=== PATIENT | male | born 1950 | race Caucasian/White ===

== ENCOUNTER → 2019-04-25 | Outpatient (CLI) | payer BC ==
[~2019-04-25] MED LIST: ASPIRIN E.C. 8181 MG PO; CALCIUM1 CAP PO; CARDENE 20MG CA20 M1 PO; CITRACAL ECONO200 MG PO; DIGESTIVE ENZYM1 TAB PO; ECHINACEA PO; FE-2020 MG PO; IMODIUM 2MG CAPS2 MG PO; JOINT PO; MEN'S VITAMIN; SYNTHROID 0.0.025 MG PO; SYNTHROID0.075 MG/T PO; VITAMIN B COMPL1 T16 PO; VITAMIN B COMPL1 TA1 PO; VITAMIN B12 PO; VITAMIN C500 MG PO; VITAMIN D1000 IU PO; VITAMIN D31000 IU PO; ZOFRAN 4MG T4 MG/TAB PO; [UNRECOGNIZED DRUG - OTHER] PO; [UNRECOGNIZED DRUG - OTHER] PO; [UNRECOGNIZED DRUG - OTHER] PO; [UNRECOGNIZED DRUG - OTHER] PO; [UNRECOGNIZED DRUG - OTHER] PO; [UNRECOGNIZED DRUG - OTHER] PO
== END ==
LOC: COL.LAB 12:32
DX: Z01.89 Encounter for other specified special examinations (principal)

== ENCOUNTER 2019-11-10 05:53 | Inpatient (IN) | payer BC, MEDICARE ==
[~2019-11-10] VITALS: Ht 167.6 cm; Wt 77.7 kg
[2019-11-10 06:40] LABS: BASO % 0.2 % (0.0-2.0); GRAN # 8.5 (1.4-6.5); GRAN % 84.5 % (42.2-75.2); HEMOGLOBIN 11.8 g/dl (13.5-18.0); LYMPH # 0.6 (1.2-3.4); LYMPH % 5.9 % (20.0-51.0); MEAN CELL VOLUME 79 fl (80.0-100.0); MEAN CORPUSCULAR HEMOGLOBIN 27 pg (27.0-31.0); MEAN CORPUSCULAR HGB CONC 34 g/dl (33.0-37.0); MEAN PLATELET VOLUME 12.2 fl (7.4-10.4); MONO # 0.9 (0.1-0.6); MONO % 9.1 % (1.7-9.3); PLATELET COUNT 98 K/mm3 (130-400); RED BLOOD COUNT 4.45 M/mm3 (4.20-5.60); REDCELL DISTRIBUTION WIDTH-CV 16.7 % (11.5-14.5)
[2019-11-10 06:42] LABS: HEMATOCRIT 35.1 % (42.0-52.0)
[2019-11-10 06:51] LABS: BILIRUBIN,TOTAL 0.7 mg/dL (0.0-1.0); CALCIUM 8.4 mg/dL (8.4-10.2); CREATININE, serum 0.68 (0.66-1.25); POTASSIUM 3.9 mmol/L (3.4-5.0); TOTAL PROTEIN 6.7 gm/dL (6.4-8.2)
[2019-11-10] MEDS ORDERED: ZOFRAN ODT8 MG PO (07:31)
[2019-11-10] MEDS ORDERED: TAMIFLU 75MG75 MG PO (07:31)
[2019-11-10] MEDS ORDERED: OMNICEF 300MG300 MG PO (07:34)
[2019-11-10] MEDS ORDERED: DOXYCYCLINE 10100 MG PO (07:35)
[2019-11-10 12:22] VITALS: BP 97/57; PULSE 80; TEMP 98
[2019-11-10 12:50] VITALS: BP 97/57; PULSE 80; TEMP 98
[2019-11-10 16:00] VITALS: BP 107/58; PULSE 86; TEMP 98.6
--- NOTE | 2019-11-10 17:29 | NUR ---
Patient was assisted to room from ER via stretcher. Was able to ambulate from stretcher to bed without difficulty. Was resting with eyes closed, facial expression relaxed. Assessment complete. Med rec reviewed. Stated he would like water from the closet as he will drink his own. is brining their own food from home as they are vegetarians. Did contact kitchen about this and they said they would call patients room to speak with him regarding dietary needs. Patient had received scheduled nebulizer treatment and shortly after the notified this nurse that patient was not well. I went to room with her and she had stated that the patient was healed from the antibioitics in the ER and they expected to leave later today until he received the nebulizer treatment. I did explain potential side effects and they declined to have any more treatments and they opt to be healed naturally as they both are so sensitive to medications. They also reported that the provider stated he could be taken off telemetry as he did not want adhesive on his skin. I did notify provider of patients reaction to the nebulizer and that he declines to take any more and that he did not wish to wear the telemetry and they discontinued nebulizers and telemetry orders. No further complaints. Call light and personal items are within reach.
--- NOTE | 2019-11-10 18:58 | NUR ---
Patient is sitting on side of bed talking on phone, shows no signs of pain. Call light and personal items are within reach.
[2019-11-10 19:51] VITALS: BP 107/55; PULSE 91; TEMP 99.3
--- NOTE | 2019-11-10 20:00 | NUR ---
Received report from DEBRA Silva. Assessment complete. Alert and oriented. Ambulatory. Denies any pain at this time. at bedside. Droplet precautions remained in place. IV to LAD intact with fluids/medication infusing, dressing CDI. Meds administered. Pt on special diet, vegan, gluten-free, pt brings in own food and water for pt. Per pt, he will not be needing meal trays from dietary. Will notify dietary in the AM and endorse to next shift. Needs attended too. Call light within reach.
[2019-11-10 23:57] VITALS: BP 102/49; PULSE 86; TEMP 100.6
[2019-11-11 03:59] VITALS: BP 104/53; PULSE 84; TEMP 98.5
--- NOTE | 2019-11-11 06:38 | NUR ---
Meds administered. T100.6, 650mg Tylenol administered, T98.5. No complaints made during the night. Needs met. Call light within reach. Pt has own food in nutrition room, labeled
--- NOTE | 2019-11-11 06:41 | NUR ---
Report given to DEBRA Silva.
[2019-11-11 07:00] LABS: BASO % 0.2 % (0.0-2.0); EOS # 0.2 (0.0-0.7); EOS % 2.4 % (0-4.0); GRAN # 6.1 (1.4-6.5); GRAN % 71.8 % (42.2-75.2); HEMOGLOBIN 10.7 g/dl (13.5-18.0); LYMPH # 1.1 (1.2-3.4); LYMPH % 12.8 % (20.0-51.0); MEAN CELL VOLUME 81 fl (80.0-100.0); MEAN CORPUSCULAR HEMOGLOBIN 27 pg (27.0-31.0); MEAN CORPUSCULAR HGB CONC 33 g/dl (33.0-37.0); MONO % 12.3 % (1.7-9.3); PLATELET COUNT 78 K/mm3 (130-400); RED BLOOD COUNT 4.01 M/mm3 (4.20-5.60); REDCELL DISTRIBUTION WIDTH-CV 17.3 % (11.5-14.5)
[2019-11-11 07:02] LABS: HEMATOCRIT 32.5 % (42.0-52.0)
[2019-11-11 07:03] LABS: CALCIUM 7.9 mg/dL (8.4-10.2); CREATININE, serum 0.9 (0.66-1.25); POTASSIUM 4.3 mmol/L (3.4-5.0)
[2019-11-11 07:46] VITALS: BP 101/65; PULSE 95; TEMP 101.4
--- NOTE | 2019-11-11 09:09 | NUR ---
Patient is awake and alert in his room. Is at the sink doing hygene. While administering medications, patient refused tamiflu as he believes it is causing him to become more ill. He also has a 101.4 temperature and I offered PRN APAP, he declined this as well as he feels his body needs to heal naturally. Will continue to accept IV fluids and antibiotics. I did notify provider of patient not accepting other medications and current temperature.
--- NOTE | 2019-11-11 12:19 | NUR ---
Strap Folding Machine Operator met with patient to discuss discharge planning. Patient lives at home with his Sasha (ph#[phone]) and sees Dr. Zhang for primary care. Patient obtains medications from [facility] with no difficulties. Patient does not use any DME and reports independence with ADLS. Patient states he has DPOA-[facility] although SW did not locate copy in EMR. Patient plans to return home upon discharge. No additional needs at this time and SW will continue to follow as needed.
[2019-11-11 12:24] VITALS: BP 148/60; PULSE 102; TEMP 99.7
[2019-11-11 16:20] VITALS: BP 126/66; PULSE 100; TEMP 99.4
--- NOTE | 2019-11-11 18:01 | NUR ---
Patient has been up walking in [place] with staff. Tolerated well. Did walk to [employer] machine for bottled water. Temp has improved and patient has felt up to sitting on couch. Denies pain. Call light and personal items are within reach.
[2019-11-11 19:37] VITALS: BP 132/62; PULSE 92; TEMP 98.4
--- NOTE | 2019-11-11 19:53 | NUR ---
Resting in bed with at bedside. Assessment complete. Right lung and left upper lobe diminshed. Dyspnea with excretion. Heart sounds normal. Bowels active x4. Pulses present throughout. No edema noted. INT left forearm without complications. Denies pain at this time. Denies other needs. Call light in reach.
--- NOTE | 2019-11-11 21:00 | NUR ---
Reports tamiflu causes nausea. No longer wants to take. Educated patient on side effects. Patient states "I do not care, they can kick me out, I am not taking it anymore." Eating at this time. Will monitor.
--- NOTE | 2019-11-11 21:45 | NUR ---
Reports nausea resolved and has had some diarrhea. Denies other symptoms. Denies needs at this time. Call light in reach.
--- NOTE | 2019-11-12 00:05 | NUR ---
Up to restroom and returned to bed. Denies needs. Denies pain. Call light in reach. IV zosyn started as ordered.
[2019-11-12 01:24] VITALS: BP 126/66; PULSE 85; TEMP 98.3
[2019-11-12] MEDS ORDERED: SYNTHROID 0.0.025 MG PO (04:13)
[2019-11-12 04:14] VITALS: BP 111/54; PULSE 92; TEMP 99.4
--- NOTE | 2019-11-12 04:18 | NUR ---
Patient had own synthyroid at bedside. Refused AM dose from hospital. States he takes 25mcg four times a day due to sensitivity and would like to take own medications. Educated patient regarding hospital policy with home medications. Pill vial placed in patient bin in med room to be checked by pharmacy in AM. Denies pain. Denies other needs at this time. Call light in reach.
--- NOTE | 2019-11-12 06:00 | NUR ---
Patient had one episode of nausea throughout night after taking tamiflu. Otherwise uneventful night. Resting in bed this AM. Call light in reach.
--- NOTE | 2019-11-12 07:17 | NUR ---
Report given to DEBRA Day
[2019-11-12 07:26] LABS: BASO % 0.2 % (0.0-2.0); EOS # 0.2 (0.0-0.7); EOS % 4.1 % (0-4.0); GRAN # 3.2 (1.4-6.5); HEMOGLOBIN 11.1 g/dl (13.5-18.0); LYMPH # 1.2 (1.2-3.4); LYMPH % 21.2 % (20.0-51.0); MEAN CELL VOLUME 82 fl (80.0-100.0); MEAN CORPUSCULAR HEMOGLOBIN 26 pg (27.0-31.0); MEAN CORPUSCULAR HGB CONC 32 g/dl (33.0-37.0); MONO # 0.8 (0.1-0.6); MONO % 15.1 % (1.7-9.3); PLATELET COUNT 84 K/mm3 (130-400); RED BLOOD COUNT 4.21 M/mm3 (4.20-5.60); REDCELL DISTRIBUTION WIDTH-CV 17.8 % (11.5-14.5)
[2019-11-12 07:27] LABS: HEMATOCRIT 34.3 % (42.0-52.0)
[2019-11-12 07:32] VITALS: BP 114/63; PULSE 75; TEMP 99.7
[2019-11-12 07:40] LABS: CALCIUM 8.3 mg/dL (8.4-10.2); CREATININE, serum 0.88 (0.66-1.25)
[2019-11-12] MEDS ORDERED: AMOXICILLIN 8751 TAB PO (09:35)
--- NOTE | 2019-11-12 09:41 | NUR ---
Senior Mechanical Technician attended clinical rounds with the team. Patient to discharge home today and follow up with his primary care physician within a week. No additional needs at this time.
--- NOTE | 2019-11-12 10:19 | NUR ---
CARE TEAM ROUNDED SEE ORDERS FOR DISCHARGE. VSS. ALL ASSESSMENTS WNL.
--- NOTE | 2019-11-12 14:27 | NUR ---
DISCHARGE INSTSRUCTIONS PROVIDED AND QUESTIONS ANSWERED. PT LEFT AMBULATORY WITH STAFF.
== END 2019-11-12 13:30 | disposition home or self-care (01) | DRG 194 ==
LOC: COL.ER 05:53 → MEDICAL 10:42
PROVIDERS: Emergency Medicine; Hospitalist; Physician Assistant; ADMIT Internal Medicine
DX: J10.00 Influenza due to other identified influenza virus with unspecified type of pneumonia (principal); E87.1 Hypo-osmolality and hyponatremia; F17.210 Nicotine dependence, cigarettes, uncomplicated; E03.9 Hypothyroidism, unspecified; R11.0 Nausea; D69.6 Thrombocytopenia, unspecified
CPT/HCPCS: 99222-AI; 99232-AI; 99239; A4216; J0696; J1650; J1885; J2405; J2543; J7030